=== PATIENT | female | born 1960 | race Caucasian/White ===

== ENCOUNTER 2018-01-12 12:04 | Emergency (ER) | payer OTHER ==
[2018-01-12] VITALS (14 sets, daily range): BP systolic 121–286; BP diastolic 48–89
[~2018-01-12] VITALS: Ht 167.6 cm; Wt 131.1 kg
[2018-01-12 12:27] LABS: ABSOLUTE BASOPHILS 0.1 thou/uL (0.0-0.2); ABSOLUTE EOSINOPHILS 0.3 thou/uL (0.0-0.7); ABSOLUTE LYMPHOCYTES 1.5 thou/uL (0.8-5.3); ABSOLUTE MONOCYTES 0.5 thou/uL (0.0-1.2); ABSOLUTE NEUTROPHILS 9.8 thou/uL (1.6-8.1); BASOPHILS 0.9 %; EOSINOPHILS 2.1 %; HEMATOCRIT 44.2 % (37.0-47.0); HEMOGLOBIN 14.7 gm/dL (12.0-15.0); LYMPHOCYTES 12.6 %; MCH 29.4 pg (26.0-34.0); MCHC 33.2 g/dL (28.0-37.0); MCV 88.8 fL (80.0-100.0); MONOCYTES 4.2 %; MPV 7.4 fl. (7.2-11.1); NUCLEATED RBCS 0 /100WBC; PLATELET COUNT* 425 thou/uL (150-400); POLYS 80.2 %; RBC 4.98 mil/uL (4.20-5.00); WBC 12.3 thou/uL (4.0-11.0)
[2018-01-12] MEDS ORDERED: CARDIZEM CD120 MG PO (12:27)
[2018-01-12] MEDS ORDERED: SORINE 80 MG TA80 M1 PO (12:27)
[2018-01-12] MEDS ORDERED: TOPROL XL25 MG PO (12:27)
[2018-01-12] MEDS ORDERED: PRAVACHOL40 MG PO (12:27)
[2018-01-12] MEDS ORDERED: XARELTO20 MG PO (12:27)
[2018-01-12] MEDS ORDERED: KLOR-CON 1010 MEQ PO (12:29)
[2018-01-12] MEDS ORDERED: LASIX 20 MG TAB20 MG PO (12:30)
[2018-01-12] MEDS ORDERED: JANUVIA100 MG PO (12:30)
[2018-01-12] MEDS ORDERED: GLYBURIDE 2.52.5 MG PO (12:31)
[2018-01-12] MEDS ORDERED: GLUCOPHAGE XR500 MG PO (12:31)
[2018-01-12] MEDS ORDERED: SYNTHROID150 MCG PO (12:31)
[2018-01-12 12:39] LABS: APTT 34.3 Seconds (25.0-31.3); PROTIME 10.7 Seconds (9.20-11.50)
[2018-01-12 12:56] LABS: ANION GAP 13 mmol/L (7-16); BUN 20 mg/dL (7-18); CALCIUM 9.8 mg/dL (8.5-10.1); CHLORIDE 100 mmol/L (98-107); CO2 25 mmol/L (21-32); CREATININE 0.8 mg/dL (0.6-1.3); GLUCOSE 194 mg/dL (70-99); POTASSIUM 4.4 mmol/L (3.5-5.1); SODIUM 138 mmol/L (136-145)
[2018-01-12 13:01] LABS: ALBUMIN 3.7 g/dL (3.4-5.0); ALKALINE PHOSPHATASE 187 U/L (46-116); CK-MB MASS 0.5 ng/mL (<0.5-3.6); LIPASE 293 U/L (73-393); NT-PRO BRAIN NAT PEPTIDE 489 pg/mL (<300); SGOT 45 U/L (15-37); SGPT 43 U/L (30-65); TOTAL BILIRUBIN 0.2 mg/dL (<0.1-1.0)
[2018-01-12 13:17] LABS: TROPONIN-I LEVEL <0.06 ng/mL (<0.06)
[2018-01-12] MEDS ORDERED: MULTAQ 400 MG400 MG PO (14:06)
--- NOTE | 2018-01-12 15:31 | EKG ---
[place] [address] ELECTROCARDIOGRAM REPORT Name: ARY BRAGAA Room: [place] [address] ADM IN [facility].#: [id number] Admission: 01/12/18 Attend Phys: Chidi Velasquez MD Discharge: Date of : 56 Report #: [id number] THIS REPORT FOR: //name// [facility] Test Date: 2018-01-12 Test Time: 13:53:51 Pat Name: SAUL BRAGA Department: Room: Gender: F Actuarial Consultant: SON : 1960 Requested By: Bill Shirley Order Number: [id number] MD: Chidi Velasquez Measurements Intervals [place] Rate: 73 P: 51 VT: 185 QRS: -23 QRSD: 86 T: 39 QT: 546 QTc: 602 Interpretive Statements Sinus rhythm Borderline left axis deviation Low voltage, precordial leads Consider anterior infarct Prolonged QT interval No previous ECG available for comparison Electronically Signed On 01-12-2018 15:31:18 SOFTWARE INSTALLER by Chidi Velasquez [email or web address] <ELECTRONICALLY SIGNED> By: Chidi Velasquez MD, [facility] 01/12/18 1531 1353 1353 Chidi Velasquez MD, FACC /EPI
--- NOTE | 2018-01-12 16:25 | EKG ---
[place] [address] ELECTROCARDIOGRAM REPORT Name: SAUL BRAGA Room: [place] [address] ADM IN [facility]#: [id number] Admission: 01/12/18 Attend Phys: Chidi Velasquez MD Discharge: Date of : 56 Report #: [id number] THIS REPORT FOR: //name// [facility] ED Test Date: 2018-01-12 Test Time: 12:13:09 Pat Name: SAUL BRAGA Department: Room: [place] [address] Gender: F Contact Lens Inspector: MARIALUISA : 1960 Requested By: Chidi Velasquez Order Number: [id number] Reading MD: Chidi Velasquez Measurements Intervals [place] Rate: 114 P: [place]: QRS: -31 QRSD: 92 T: 190 QT: 335 QTc: 462 Interpretive Statements Atrial fibrillation Inferior infarct, old, possible Anteroseptal infarct, age indeterminate, possible Baseline wander in lead(s) V2,V5,V6 No previous ECG available for comparison Electronically Signed On 01-12-2018 16:25:27 SLITTING MACHINE OPERATOR by Chidi Velasquez [email or web address] <ELECTRONICALLY SIGNED> By: Chidi Velasquez MD, FACC 01/12/18 1625 1213 1213 Chidi Velasquez MD, [facility] /EPI
--- NOTE | 2018-01-14 16:36 | H ---
[place] [address] HISTORY AND PHYSICAL Name: SAUL BRAGA [id number] Admission: 01/12/18 Attend Phys: Discharge: 01/12/18 Date of : 56 Report #: [id number] THIS REPORT FOR: //name// CC: HERON Velasquez Primary Physician INDICATION: Recurrent atrial fibrillation with rapid ventricular response rate. HISTORY OF PRESENT ILLNESS: The patient is a pleasant 57-year-old white female with paroxysmal atrial fibrillation. She underwent atrial fibrillation ablation approximately 10 years ago. At that time, she was told the ablation was only partially successful as part of the pathways were not reachable with the particular procedure she had. She has been on sotalol and anticoagulated with Xarelto 20 mg daily. She was maintaining sinus rhythm until a few weeks ago, at which time she had recurrence of her atrial fibrillation. Her rate has been controlled with medication. She remains in atrial fibrillation. She presents with increased dyspnea on exertion. By echocardiogram, her EF has declined to approximately 45%. She denies any chest pain. She is without other cardiac complaint. PAST MEDICAL HISTORY: 1. Paroxysmal atrial fibrillation, status post ablation 10 years ago. 2. Obstructive sleep apnea. 3. Type 2 diabetes mellitus. 4. Hypothyroidism. 5. Essential hypertension. SOCIAL HISTORY: The patient does not smoke. She does not drink alcohol. ALLERGIES: CODEINE which causes NAUSEA. CURRENT MEDICATIONS: Levothyroxine 150 mcg daily, metformin ER 1000 mg b.i.d., Lasix 20 mg b.i.d., glyburide 5 mg b.i.d., pravastatin 40 mg at bedtime, potassium chloride 10 mEq daily, Xarelto 20 mg daily, sotalol 80 mg b.i.d., diltiazem CD 180 mg twice daily, metoprolol tartrate 25 mg b.i.d. REVIEW OF SYSTEMS: On 14-point review of systems: NEUROLOGIC: She denies convulsions, seizures or focal paralysis. GENERAL: There is no unexplained weight loss or fever. RESPIRATORY: She is without cough, sputum production or underlying lung disease. CARDIOVASCULAR: As outlined above. ENDOCRINE: She has type 2 diabetes mellitus. She has hypothyroidism. GASTROINTESTINAL: No nausea, vomiting, hematemesis, melena, or hematochezia. GENITOURINARY: [place] [address] HISTORY AND PHYSICAL Name: SAUL BRAGA Room: [facility]#: [id number] Admission: 01/12/18 Attend Phys: Discharge: 01/12/18 Date of : 56 Report #: [id number] HEMATOLOGIC AND LYMPHATIC: No history of anemia, bleeding disorder, blood clots. ALLERGY AND IMMUNOLOGIC: She has medical allergies outlined above. PSYCHIATRIC: No depression or anxiety. MUSCULOSKELETAL: She has some arthritis without connective tissue disease. SKIN: No recent rashes, hives or chronic skin conditions. EYES: She wears glasses. She has no acute loss in vision. EARS, NOSE, MOUTH, THROAT: She denies epistaxis or dentures. PHYSICAL EXAMINATION: VITAL SIGNS: Stable. Blood pressure 133/82, pulses in the 80s and irregular. GENERAL: This is a moderately obese, pleasant white female in no distress. Mood and affect appropriate. HEENT: The patient is wearing glasses. Extraocular muscles intact. Mucous membranes are moist. NECK: Shows no jugular venous distention. There are no carotid bruits. CHEST: Reveals clear lung ruiz without wheezes, rales or rhonchi. CARDIOVASCULAR: Reveals an irregularly irregular rhythm without gallop or murmur. ABDOMEN: Reveals a protuberant abdomen, soft, nontender. Bowel sounds present. EXTREMITIES: Show trace ankle edema. SKIN: Warm and dry. LABORATORY DATA: A 12-lead EKG shows atrial fibrillation with rapid ventricular response rate. I do not appreciate acute ST or T-wave abnormality. There is delayed R-wave progression. IMPRESSION AND RECOMMENDATIONS: 1. Recurrent persistent atrial fibrillation. The patient will be brought to the catheterization lab for elective DC cardioversion. We will obtain electrocardiogram post-cardioversion to assess accurately her QT interval and determine what medication would be appropriate for her. Continue anticoagulation chronically. 2. Hypertension, adequately controlled. 3. Hyperlipidemia. Continue current statin agent. 4. Type 2 diabetes per primary physician. 5. Hypothyroidism, on replacement. <ELECTRONICALLY SIGNED> By: Chidi Velasquez MD, FACC 01/14/18 1636 1314 1334Micchrissy Velasquez MD, FACC /nt
--- NOTE | 2018-01-14 16:36 | CARD ---
[address] [address] CARDIAC CATH REPORT Name: SAUL BRAGA [id number] Admission: 01/12/18 Attend Phys: Discharge: 01/12/18 Date of : 56 Report #: [id number] THIS REPORT FOR: //name// CC: HERON Velasquez DATE OF SERVICE: 01/12/2018 PROCEDURE: Direct current cardioversion. INDICATION: Persistent atrial fibrillation. DESCRIPTION OF PROCEDURE: After informed consent was obtained, the patient was brought to the cardiac catheterization holding area. The patient was given intravenous Versed and fentanyl 3 mg and 75 mg for conscious sedation. Once the patient was adequately sedated, she received a single biphasic shock of 300 joules. She failed to convert to sinus rhythm. The patient was given an additional 1 mg of Versed and 25 mg of fentanyl. She received a second shock at 360 biphasic joules and converted to normal sinus rhythm. There were no complications. IMPRESSION: 1. Persistent atrial fibrillation. 2. Successful direct current cardioversion. <ELECTRONICALLY SIGNED> By: Chidi Velasquez MD, [facility] 01/14/18 1636 1347 1731Micchrissy Velasquez MD, FACC /nt
== END 2018-01-12 13:22 | disposition still patient (30) ==
LOC: M.CL 12:04 → M.ERS 12:04 → M.TBA-CV 13:20 → M.CL 13:20 → M.ERS 13:22
PROVIDERS: Family Medicine
DX: I48.91 Unspecified atrial fibrillation (principal); Z88.5 Allergy status to narcotic agent; E11.9 Type 2 diabetes mellitus without complications; E03.9 Hypothyroidism, unspecified